=== PATIENT | female | born 1975 | race Caucasian/White ===

== ENCOUNTER 2016-10-06 08:44 | Emergency (ER) | payer SELFPAY ==
[2016-10-06] MEDS ORDERED: IOPAMIDOL 370 (76%) IV.SOLN 150 ML IV ONE (08:45)
[2016-10-06] MEDS ORDERED: HYDROMORPHONE HCL 0.5 MG/0.5 ML SYRINGE ONE ×2 (10:20→12:18)
[2016-10-06 10:24] LABS: ABSOLUTE NEUTROPHIL COUNT 4.9 K/mm3 (1.8-7.7); BASO % 0.2 % (0.2-1.0); EOS # 0.1 (0.0-0.5); EOS % 0.9 % (0.9-2.9); HEMATOCRIT 43.4 % (37.0-47.0); HEMOGLOBIN 14.4 gm/l (12.0-16.0); IMM NEUT # 0.1 K/mm3 (0-0.2); IMM NEUT% 0.6 % (0-1); LYMPH # 3.3 (1.0-4.8); LYMPH % 36.4 % (15-45); MEAN CELL VOLUME 92.3 fl (81.0-99.0); MEAN CORPUSCULAR HEMOGLOBIN 30.6 pg (27.0-31.0); MEAN CORPUSCULAR HGB CONC 33.2 g/dl (33.0-37.0); MEAN PLATELET VOLUME 9.8 fl (7.4-10.4); MONO # 0.7 (0.0-0.8); MONO % 7.8 % (4-12); NEUT % 54.1 % (43-75); PLATELET COUNT 261 K/mm3 (130-400)
[2016-10-06 10:37] LABS: ALB/GLOB RATIO 1.4 (>1.0); ALBUMIN 3.9 gm/dL (3.5-5.7); CALCIUM 9.1 mg/dL (8.6-10.3)
[2016-10-06] MEDS ORDERED: ONDANSETRON 4 MG/2ML 2 ML VIAL ONE (10:50)
[2016-10-06 11:07] LABS: URINE APPEARANCE CLEAR; URINE BILIRUBIN NEGATIVE (NEGATIVE); URINE BLOOD NEGATIVE (NEGATIVE); URINE COLOR YELLOW; URINE GLUCOSE (UA) NEGATIVE (NEGATIVE); URINE LEUKOCYTE ESTERASE NEGATIVE (NEGATIVE); URINE NITRITE NEGATIVE (NEGATIVE); URINE PROTEIN NEGATIVE (NEGATIVE); URINE UROBILINOGEN NORMAL (0-1 mg/dl)
[2016-10-06 11:10] LABS: HCG,QUALITATIVE URINE NEGATIVE
--- NOTE | 2016-10-06 12:16 | CT ---
ABD/PELVIS W/ CON COMPARISON: CT abdomen and pelvis with contrast, 06/06/2016 HISTORY: 41-year-old female with 3 days of left-sided pelvic pain, constipation, and urinary retention. Amenorrhea for 2 months. Past history of hernia repair. Technique: No oral contrast. Intravenous injection 125 mL Isovue 370. Using a [employer] Aquilion [address] scanner, images were obtained from the diaphragm to the floor the pelvis. An automated dose reduction technique was used to minimize patient radiation dose. Dose information: CTDIvol (mGy): 22.20 DLP(mGycm): 1235.40 FINDINGS: Lung bases: Normal. Inferior mediastinum and heart: Normal. Liver: No change. Low attenuation. Gallbladder: Cholecystectomy. Bile ducts: Normal. Pancreas: Normal. Spleen: Normal. Adrenal glands: Normal. Kidneys: Normal. Ureters: Normal Urinary bladder: Normal. Uterine: Left ovary cyst, 3.8 x 3.5 cm. Blood vessels: Normal Lymph nodes: Normal Stomach: Normal Duodenum: Normal Small intestine: Normal Appendix: Normal Colon: Normal Abdominal wall and supporting musculature: Repair of ventral abdominal wall hernia. No recurrence. Bones: Normal IMPRESSION: 1. Left ovary cyst, 3.8 x 3.5 cm. Normal enhancement of the left ovary. No free fluid. 2. Cholecystectomy. Fatty infiltration of the liver. 3. No recurrent abdominal wall hernia. The report was sent to the emergency department electronic medical record system, 10/06/2016 at 12:18.
== END 2016-10-06 14:01 | disposition home or self-care (01) ==
LOC: ED 08:44
DX: N83.202 Unspecified ovarian cyst, left side (principal); I10 Essential (primary) hypertension; F17.210 Nicotine dependence, cigarettes, uncomplicated
CPT/HCPCS: 81025; 85025; 80053; 81003; 74177; 96375; 96376; 99284 ×2; 96374; 51701; J2405; Q9967; J1170 ×2